=== PATIENT | female | born 1985 | race Two or more races ===

== ENCOUNTER 2020-02-14 05:12 | Day surgery (SDC) | payer OTHER ==
[~2020-02-14 05:12] MED LIST: SYNTHROID125 MCG PO; SYNTHROID137 MCG PO
== END 2020-02-14 15:50 | disposition home or self-care (01) ==
LOC: CIR.AMB 05:12
PROVIDERS: ATTEND Obstetrics & Gynecology
DX: D28.0 Benign neoplasm of vulva (principal); Z20.828 Contact with and (suspected) exposure to other viral communicable diseases